=== PATIENT | male | born 1985 | race Caucasian/White ===

== ENCOUNTER 2020-12-10 17:12 | Emergency (ER) | payer SELFPAY ==
--- NOTE | ~2020-12-10 | CT_ITS ---
EXAMINATION: CT abdomen pelvis wo con DATE: 12/10/2020 17:51 INDICATION: Left flank pain. TECHNIQUE: Computed tomography (CT) of the abdomen and pelvis was performed without intravenous contr ast. Automated exposure control and iterative reconstruction technique were employed. The dose-length product was 391.65 mGy-cm. COMPARISON: None. FINDINGS: The visualized portions of the lung bases demonstrate a calcified nodule in right lower lob e, consistent with old granulomatous disease. No pleural effusion. The heart size is normal. No peric ardial effusion. The liver and spleen are normal. There are gallstones in the gallbladder, which is n ormal in size. The pancreas, adrenal glands, and right kidney are normal. There is mild left hydronep hrosis and hydroureter. There is a 4 mm stone in left ureter where it crosses the iliac vessels. Ther e are no dilated loops of bowel. The appendix is normal. There are no pathologically enlarged lymph n odes. There is no free intraperitoneal fluid. There is mild thoracic spondylosis. IMPRESSION: 1. 4 mm stone in mid left ureter with mild left hydronephrosis and hydroureter. Reviewed, dictated and finalized at location A. IMPRESSION: 1. 4 mm stone in mid left ureter with mild left hydronephrosis and hydroureter .
--- NOTE | ~2020-12-10 | XR_ITS ---
EXAMINATION: XR abdomen/kub 1V DATE: 12/10/2020 18:00 INDICATION: Left ureteral stone. Left flank pain. TECHNIQUE: A supine view of the abdomen on 2 radiographs was obtained. COMPARISON: CT abdomen and pelvis 12/10/2020 FINDINGS: There are no dilated loops of bowel. There is a phlebolith in right pelvis. There is a 4 mm stone in left ureter overlying the sacrum. IMPRESSION: 1. 4 mm stone in left ureter overlying the sacrum. Reviewed, dictated and finalized at location A.
[2020-12-10 17:22] VITALS: BP 158/102; PULSE 87; RESP 17; TEMP 36.2; O2SAT 100
--- NOTE | 2020-12-10 17:28 | ED.GENADULT ---
HPI - General Adult General Chief complaint: Abdominal Pain Stated complaint: abd pain/hematuria Time Seen by Provider: 12/10/20 17:13 Source: RN notes reviewed History of Present Illness HPI narrative: Patient presents to emergency department from urgent care for less abdominal pain. Patient states pain began this morning pain is located in the left lower abdomen radiates into his left testicle described as aching in nature associated with some nausea. Patient also noted blood in his urine starting today. Patient states he does have a history of previous kidney stone he denies any fevers or chills, chest pain shortness of breath or any other symptoms states did not take any medication for the symptoms Related Data Allergies Allergy/AdvReac Type Severity Reaction Status Date / Time diphenhydramine AdvReac Hyperactive Verified 12/10/20 17:36 [From Linda] Review of Systems Review of Systems: Narrative: Gen.: Denies fevers or chills ENT: Denies congestion Respiratory: Denies shortness of breath or cough CV: Denies chest pain or palpitations GI: See HPI hematuria Musculoskeletal: Denies back pain or muscle pain Neuro: Denies numbness, tingling, weakness or focal weakness Skin: Denies rash Except as documented, all other systems reviewed and negative [facility] Past Medical History Medical History (Updated 12/10/20 @ 18:41 by Oliver Huff DO) Kidney stone Social History Social History (Updated 12/10/20 @ 17:29 by Oliver Huff DO) Smoking status: Current every day smoker Exam Narrative: Exam Narrative: APPEARANCE: No acute distress, nontoxic, resting in bed HEENT: Normocephalic, atraumatic, OMM RESPIRATORY: No respiratory distress, clear to auscultation bilaterally with no rhonchi wheezing or rales CARDIOVASCULAR: RRR s murmur ABDOMINAL: Soft nondistended tender palpation left lower quadrant no tenderness left upper quadrant and right upper quadrant right lower quadrant no rebound or guarding MUSCULOSKELETAl: Moves all extremities. No clubbing, cyanosis or edema. NEURO: Awake and alert. Following commands, speech normal, no focal deficits SKIN:: Warm, dry. Normal Color PSYCHIATRIC: Normal affect/mood Course Course Emergency Course: Patient states he is feeling much better at this time Discussed with Dr. Chase for urology agrees with plan for discharge to follow-up as outpatient with patient started on Bactrim Discussed with patient results of workup and diagnosis. Discussed need for follow-up with primary care, proper use of medication, and reasons to return to the emergency department. Patient understands and agrees to current treatment plan Vital Signs Vital signs: Vital Signs Temperature 97.1 F L 12/10/20 17:22 Pulse Rate 87 12/10/20 17:22 Respiratory Rate 17 12/10/20 17:22 Blood Pressure 158/102 H 12/10/20 17:22 Pulse Oximetry 100 12/10/20 17:22 Temperature 97.1 F L 12/10/20 17:22 Pulse Rate 87 12/10/20 17:22 Respiratory Rate 17 12/10/20 17:22 Blood Pressure 158/102 H 12/10/20 17:22 Pulse Oximetry 100 12/10/20 17:22 Medical Decision Making Vital Signs Vital Signs: Vital Signs Temperature 97.1 F L 12/10/20 17:22 Pulse Rate 87 12/10/20 17:22 Respiratory Rate 17 12/10/20 17:22 Blood Pressure 158/102 H 12/10/20 17:22 Pulse Oximetry 100 12/10/20 17:22 Temperature 97.1 F L 12/10/20 17:22 Pulse Rate 87 12/10/20 17:22 Respiratory Rate 17 12/10/20 17:22 Blood Pressure 158/102 H 12/10/20 17:22 Pulse Oximetry 100 12/10/20 17:22 Lab Data Result diagrams: 12/10/20 17:34 12/10/20 17:34 Labs: Lab Results 12/10/20 12/10/20 12/10/20 Range/Units 17:34 17:34 17:34 WBC 11.0 H (4.5-10.0) K/mm3 RBC 5.48 (4.6-6.20) M/mm3 Hgb 16.8 (14.0-18.0) g/dL Hct 47.3 (42.0-52.0) % MCV 86.3 (80-100) fl MCH 30.7 (26-34) pg MCHC 35.5 (32-36) g/dl RDW 11.9 (11.5-14.5)
[2020-12-10] MEDS: KETOROLAC 30 MG/ML VIAL (*BKC) IV PUSH (17:40)
[2020-12-10] MEDS: SODIUM CHLORIDE 0.9% IV 1,000 ML 999 ML IV CONT (17:41)
[2020-12-10 17:45] LABS: Basophils Absolute Auto 0.1 K/mm3 (0.0-0.1); Basophils Percent Auto 0.5 % (0.2-1.2); Eosinophils Absolute Auto 0.1 K/mm3 (0-0.3); Eosinophils Percent Auto 0.9 % (0-4.4); Hematocrit 47.3 % (42.0-52.0); Hemoglobin 16.8 g/dL (14.0-18.0); Immature Granulocyte Absolute 0.13 K/mm3 (0.00-0.031); Immature Granulocyte Percent A 1.2 % (0-0.5); Lymphocytes Absolute Auto 1.81 K/mm3 (0.9-3.2); Lymphocytes Percent Auto 16.5 % (18.3-44.2); Mean Corpuscular HGB Conc 35.5 g/dl (32-36); Mean Corpuscular Hemoglobin 30.7 pg (26-34); Mean Corpuscular Volume 86.3 fl (80-100); Mean Platelet Volume 8.9 fl (7.4-10.4); Monocytes Absolute Auto 0.5 K/mm3 (0.1-0.6); Monocytes Percent Auto 4.6 % (2.6-8.5); Neutrophils Absolute Auto 8.4 K/mm3 (1.3-6.7); Neutrophils Percent Auto 76.3 % (45.5-73.1); Platelet Count Result 294 k/mm3 (150-375); Red Blood Count 5.48 M/mm3 (4.6-6.20); Red Cell Distribution Width 11.9 % (11.5-14.5)
[2020-12-10 17:50] LABS: Anion Gap 9 mmol/L (8-16); Blood Urea Nitrogen 11 mg/dL (9-20); Calcium 9.7 mg/dL (8.4-10.2); Carbon Dioxide 26 mmol/L (22-30); Chloride 104 mmol/L (98-107); Estimated CRCL calculation 129 ml/min; Estimated Glomerular Filt Rate > 60; Glucose 217 mg/dL (75-110); Potassium 4.4 mmol/L (3.4-5.0); Sodium 139 mmol/L (137-145)
[2020-12-10 17:59] LABS: Add Urine Microscopic? YES; Appearance Urine Cloudy (Clear); Bilirubin Urine Negative (Negative); Blood Urine 3+ (Negative); Color Urine Red (Yellow); Glucose Urine UA 1+ mg/dL (Negative); Ketones Urine Negative (Negative); Leukocyte Esterase Ur Negative LEU/UL (Negative); Mucus Urine Heavy /lpf; Nitrate Urine Negative (Negative); Protein Urine 2+ mg/dL (Negative); RBC Urine >75 /hpf (0-2); Specific Grav Ur 1.025 (1.001-1.035); Squamous Epithelial Cell Urine Moderate /hpf (Few); Urobilinogen Urine Negative mg/dL (<2.0); WBC Clumps Urine Present /HPF; WBC Urine >75 /hpf
[2020-12-10] MEDS: TAMSULOSIN HCL 0.4 MG CAPSULE PO (18:03)
[2020-12-10 18:58] VITALS: BP 143/85; PULSE 97; RESP 18; O2SAT 100
== END 2020-12-10 19:04 | disposition home or self-care (01) ==
PROVIDERS: Emergency Provider Emergency Medicine
DX: N13.2 Hydronephrosis with renal and ureteral calculous obstruction (principal); N39.0 Urinary tract infection, site not specified; F17.200 Nicotine dependence, unspecified, uncomplicated
CPT/HCPCS: 36415; 74018; 74176; 80048; 81001; 85025; 87086; 87088; 96361; 96374; 99284; A9270; J1885; J7030